=== PATIENT | male | born 1965 | race African-American/Black ===

== ENCOUNTER 2018-08-24 18:53 | Emergency (ER) | payer MEDICAID ==
[~2018-08-24] VITALS: Ht 180.3 cm; Wt 99.8 kg
[2018-08-24] MEDS ORDERED: ketorolac trometh. 30mg/ml inj. IM ONE (19:45)
[2018-08-24] MEDS ORDERED: OXYC-145 PO (19:48)
[2018-08-24 20:00] VITALS: BP 149/90
== END 2018-08-24 20:00 | disposition home or self-care (01) ==
LOC: ER 18:53
DX: N20.0 Calculus of kidney (principal); Z87.442 Personal history of urinary calculi
CPT/HCPCS: 96372; 99283; J1885

== ENCOUNTER 2018-08-26 22:13 | Emergency (ER) | payer MEDICAID ==
[~2018-08-26] VITALS: Ht 180.3 cm; Wt 86.2 kg
[~2018-08-26 22:13] MED LIST: OXYC-145 PO
[2018-08-27] MEDS ORDERED: ketorolac trometh inj. 60 MG/2 ML VIAL IM ONE (00:05)
[2018-08-27] MEDS ORDERED: normal saline 1000ML IV soln IVB ONE ×2 (01:10→02:40)
[2018-08-27] MEDS ORDERED: ondansetron/PF 4mg/2ml inj IV ONE (01:10)
[2018-08-27 02:51] LABS: CLARITY,URINE CLEAR (Clear); COLOR,URINE YELLOW (Yellow); GLUCOSE, URINE NEGATIVE (Neg); KETONES,URINE NEGATIVE (Neg); LEUKOCYTE ESTERASE ,URINE NEGATIVE (Neg); NITRITES, URINE NEGATIVE (Neg); OCCULT BLOOD,URINE LARGE (Neg); PH,URINE 5.5 (4.8-8.0); PROTEIN,URINE NEGATIVE (Neg); UROBILINOGEN,URINE 0.2 E.U/dL (0.2-1.0)
[2018-08-27 02:52] LABS: UA COLLECTION TYPE CLN CATCH MIDSTREAM
[2018-08-27 03:05] LABS: BACTERIA,URINE FEW /HPF (Neg); WBC,URINE 0-4 /HPF (0-4)
[2018-08-27 03:06] LABS: CAL OXALATE CRYSTALS 4+ /HPF (NEGATIVE); HYALINE CASTS 0-3 /LPF (NEGATIVE); SQUAMOUS EPITHELIAL CELL,UR FEW /LPF (FEW)
[2018-08-27 03:15] LABS: BASOPHILS % (AUTO) 0.3 % (0-1); EOSINOPHILS # (AUTO) 0.1 X10'3 (0-0.9); EOSINOPHILS % (AUTO) 1.2 % (0-6); HEMATOCRIT 41.7 % (42.0-52.0); HEMOGLOBIN 14.1 g/dl (14.0-17.9); LYMPHOCYTES # (AUTO) 1.1 X10'3 (1.1-4.8); LYMPHOCYTES % (AUTO) 8.8 % (21-51); MEAN CORPUSCULAR HEMOGLOBIN 30.3 PG (27.0-31.0); MEAN CORPUSCULAR HGB CONC 33.9 % (33.0-36.5); MEAN CORPUSCULAR VOLUME 89.5 FL (78-98); MEAN PLATELET VOLUME 7.6 FL (7.4-10.4); MONOCYTES # (AUTO) 0.6 X10'3 (0-0.9); MONOCYTES % (AUTO) 4.5 % (2-12); NEUTROPHILS # (AUTO) 10.7 X10'3 (1.8-7.7); NEUTROPHILS % (AUTO) 85.2 % (42-75); PLATELET COUNT 196 X10'3 (140-440); RED BLOOD COUNT 4.66 X10'6 (4.70-6.10); RED CELL DISTRIBUTION WIDTH 13.4 % (11.5-14.5); WHITE BLOOD COUNT 12.6 X10'3 (4.5-11.0)
[2018-08-27 03:30] LABS: ALANINE AMINOTRANSFERASE 18 U/L (12-78); ALBUMIN 3.2 G/DL (3.4-5.0); ALBUMIN/GLOBULIN RATIO 0.9 (1.1-1.5); ALKALINE PHOSPHATASE 71 IU/L (46-116); ANION GAP 5 (8-16); ASPARTATE AMINO TRANSFERASE 16 U/L (10-37); BILIRUBIN,TOTAL 0.4 MG/DL (0.1-1.0); BLOOD UREA NITROGEN 13 MG/DL (7-18); BUN/CREATININE RATIO 7.3 (5.4-32.0); CALCIUM 8.1 MG/DL (8.5-10.1); CHLORIDE 104 MMOL/L (99-107); CREATININE 1.78 MG/DL (0.60-1.10); GLUCOSE 147 MG/DL (70-104); POTASSIUM 4.4 MMOL/L (3.5-5.1); SODIUM 138 MMOL/L (135-145); TOTAL PROTEIN 6.9 G/DL (6.4-8.2); eGFR 40 ML/MIN
[2018-08-27] MEDS ORDERED: TADA20TA PO (03:35)
[2018-08-27] MEDS ORDERED: ONDA4TAB9 SL (03:35)
[2018-08-27] MEDS ORDERED: HYDR-4353 PO (03:35)
[2018-08-27] MEDS ORDERED: LEVO500T2 PO (03:35)
[2018-08-27] MEDS ORDERED: KETO10TA2 PO (03:35)
[2018-08-27] MEDS ORDERED: levoFLOXACIN 750MG TABLET PO ONE (03:50)
[2018-08-27 04:02] VITALS: BP 148/101
== END 2018-08-27 04:20 | disposition home or self-care (01) ==
LOC: ER 22:14
DX: N20.0 Calculus of kidney (principal); N39.0 Urinary tract infection, site not specified; Z87.442 Personal history of urinary calculi; Z79.899 Other long term (current) drug therapy
CPT/HCPCS: 36415; 74176; 80053; 81001; 85025; 96361; 96372; 96374; 99284; J1885; J2405; J7030

== ENCOUNTER 2018-09-21 20:19 | Emergency (ER) | payer MEDICAID ==
[~2018-09-21] VITALS: Ht 180.3 cm; Wt 99.6 kg
[2018-09-21 20:30] VITALS: BP 160/85
[2018-09-21] MEDS ORDERED: sulfamethoxazole/trimethoprim DS (800/160mg) tablet PO ONE (21:45)
[2018-09-21] MEDS ORDERED: cephalexin 250mg capsule PO ONE (21:45)
[2018-09-21] MEDS ORDERED: BACDS PO (21:47)
[2018-09-21] MEDS ORDERED: CEPH500C5 PO (21:47)
== END 2018-09-21 21:58 | disposition home or self-care (01) ==
LOC: ER 20:19
DX: L03.115 Cellulitis of right lower limb (principal); Z79.2 Long term (current) use of antibiotics; Z79.899 Other long term (current) drug therapy
CPT/HCPCS: 99283